=== PATIENT | female | born 1965 | race Caucasian/White ===

== ENCOUNTER 2018-12-04 21:57 | Emergency (ER) | payer OTHER ==
[~2018-12-04] VITALS: Ht 170.2 cm; Wt 77.1 kg
[2018-12-05] MEDS ORDERED: KETO10TA2 PO (02:19)
[2018-12-05] MEDS ORDERED: AMOX-CLAV 875-1 EACH PO (02:19)
[2018-12-05] MEDS ORDERED: MUPIROCIN22 GM TOP (02:20)
== END 2018-12-05 02:45 | disposition home or self-care (01) ==
LOC: ER 21:57
DX: S61.422A Laceration with foreign body of left hand, initial encounter (principal); S61.421A Laceration with foreign body of right hand, initial encounter; W45.8XXA Other foreign body or object entering through skin, initial encounter; Y93.89 Activity, other specified; Y92.89 Other specified places as the place of occurrence of the external cause; Y99.8 Other external cause status

== ENCOUNTER 2018-12-12 09:57 | Emergency (ER) | payer OTHER ==
[~2018-12-12] VITALS: Ht 170.2 cm; Wt 75.3 kg
[~2018-12-12 09:57] MED LIST: AMOX-CLAV 875-1 EACH PO; KETO10TA2 PO; MUPIROCIN22 GM TOP
[2018-12-12] MEDS ORDERED: FLUCONAZOLE150 MG PO (12:10)
== END 2018-12-12 12:00 | disposition home or self-care (01) ==
LOC: ER 09:57
DX: Z48.02 Encounter for removal of sutures (principal)

== ENCOUNTER 2019-01-13 09:03 | Outpatient (CLI) | payer OTHER ==
[~2019-01-13 09:03] MED LIST changes: +FLUCONAZOLE150 MG PO
== END 2019-01-13 09:13 | disposition home or self-care (01) ==
LOC: MAMO-SONO 09:03
DX: N60.11 Diffuse cystic mastopathy of right breast (principal); N60.12 Diffuse cystic mastopathy of left breast; Z12.31 Encounter for screening mammogram for malignant neoplasm of breast

== ENCOUNTER → 2020-03-02 | Outpatient (CLI) | payer OTHER | END | disposition home or self-care (01) | LOC: MAMO-SONO 02-19 11:15 | PROVIDERS: ATTEND Obstetrics & Gynecology | DX: N64.89 Other specified disorders of breast (principal) ==

== ENCOUNTER 2020-04-28 14:11 | Outpatient (CLI) | payer OTHER | END 2020-04-28 14:26 | disposition home or self-care (01) | LOC: RAD 14:11 | PROVIDERS: ATTEND Physical Medicine & Rehabilitation | DX: M25.512 Pain in left shoulder (principal) ==

== ENCOUNTER 2020-05-06 10:31 | Outpatient (CLI) | payer OTHER | END 2020-05-06 10:41 | disposition home or self-care (01) | LOC: SONOGRAMA 10:31 | PROVIDERS: ATTEND Obstetrics & Gynecology | DX: D25.9 Leiomyoma of uterus, unspecified (principal) ==

== ENCOUNTER 2021-06-13 08:00 | Outpatient (CLI) | payer OTHER | END 2021-06-13 08:11 | disposition home or self-care (01) | LOC: MAMO-SONO 08:00 | PROVIDERS: ATTEND Obstetrics & Gynecology | DX: D25.9 Leiomyoma of uterus, unspecified (principal); N60.11 Diffuse cystic mastopathy of right breast; N60.12 Diffuse cystic mastopathy of left breast ==

== ENCOUNTER 2022-07-19 10:07 | Outpatient (CLI) | payer OTHER | END 2022-07-19 10:28 | disposition home or self-care (01) | LOC: MAMO-SONO 10:07 | PROVIDERS: ATTEND Obstetrics & Gynecology | DX: Z12.31 Encounter for screening mammogram for malignant neoplasm of breast (principal); N60.11 Diffuse cystic mastopathy of right breast; N60.12 Diffuse cystic mastopathy of left breast; R10.2 Pelvic and perineal pain ==

== ENCOUNTER 2024-12-15 08:07 | Outpatient (CLI) | payer OTHER | END 2024-12-15 08:14 | disposition home or self-care (01) | LOC: MAMO-SONO 08:07 | DX: N64.2 Atrophy of breast (principal); Z00.8 Encounter for other general examination; Z83.3 Family history of diabetes mellitus; Z80.3 Family history of malignant neoplasm of breast; Z28.83 Immunization not carried out due to unavailability of vaccine; Z12.31 Encounter for screening mammogram for malignant neoplasm of breast ==